=== PATIENT | female | born 1995 | race Two or more races ===

== ENCOUNTER 2025-03-06 21:38 | Emergency (ER) | payer MEDICAID, SELFPAY ==
[2025-03-06 22:35] VITALS: BP 123/78; PULSE 97; RESP 16; TEMP 37.3; O2SAT 98
--- NOTE | 2025-03-06 23:10 | XR_ITS ---
Examination: Complete OB ultrasound greater than 14 weeks Date and time of exam: March 06, 2025, 11:49 p.m. INDICATIONS: Onset vaginal bleeding today Findings: Viable intrauterine single fetus with single amniotic sac presentation breech Cardiac motion 155 bpm Placenta posterior grade 1 Medical cord insertion seen Amniotic fluid adequate Ovaries obscured by bowel gas. Composite estimated gestational age based on BPD, head circumference, abdominal circumference, femur length is 15 weeks 2 days Estimated weight 115 g. Survey of intracranial anatomy, spinal anatomy, abdominal anatomy, four-chamber heart performed with no abnormalities identified. Impression: Viable intrauterine gestation in breech presentation.
[2025-03-06 23:40] LABS: Basophils # (Auto) 0.1 Thou/mm3 (0.0-0.2); Basophils % (Auto) 1 % (0-2.5); Eosinophils # (Auto) 0.3 Thou/mm3 (0.0-0.5); Eosinophils % (Auto) 3 % (0-10); Hematocrit 31.6 % (36.0-46.0); Hemoglobin 11.0 g/dL (12.0-16.0); Immature Granulocytes Auto 0.06 Thou/mm3 (0.00-0.00); Lymphocytes # (Auto) 2.2 Thou/mm3 (1.0-4.8); Lymphocytes % (Auto) 25 % (10-50); Mean Corpuscular HGB Conc 34.8 g/dl (31.0-37.0); Mean Corpuscular Hemoglobin 31.1 pg (25.0-35.0); Mean Corpuscular Volume 89 fL (80-100); Monocytes # (Auto) 0.6 Thou/mm3 (0.0-0.8); Monocytes % (Auto) 6 % (0-12); Neutrophils # (Auto) 5.8 Thou/mm3 (1.8-7.7); Neutrophils % (Auto) 65 % (37-80); Nucleated Red Blood Cell # 0.00 Thou/mm3 (0.00-0.00); Nucleated Red Blood Cell % 0 /100 WBC (0); Platelet Count 378 Thou/mm3 (140-440); RDW Standard Deviation 42.6 fL (36.4-46.3); Red Blood Count 3.54 Miln/mm3 (4.00-5.20); White Blood Count 9.0 Thou/mm3 (3.6-11.0)
[2025-03-07 00:13] LABS: Alanine Aminotransferase 28 U/L (10-49); Albumin, Serum 4.3 gm/dL (3.5-5.0); Albumin/Globulin Ratio 1.3 (1.2-2.2); Alkaline Phosphatase 84 U/L (46-116); Anion Gap 10 (7-16); Aspartate Amino Transferase 37 U/L (0-34); BUN/Creatinine Ratio 18 Ratio (12-20); Bilirubin,Total 0.3 mg/dL (0.3-1.2); Blood Urea Nitrogen 9 mg/dL (9-23); Calcium 9.5 mg/dL (8.3-10.6); Calcium (Corrected) 9.5 mg/dL (8.5-10.1); Carbon Dioxide 24.7 mMol/L (20.0-31.0); Chloride 104 mMol/L (98-107); Creatinine (Component) 0.5 mg/dL (0.6-1.3); Globulin 3.2 gm/dL (2.3-3.5); Glucose 116 mg/dL (74-106); Osmolality,Calculated 277 (275-295); Potassium 3.8 mMol/L (3.4-5.1); Sodium 139 mMol/L (136-145); Total Protein 7.5 gm/dL (5.7-8.2); eGFR > 60 See Note
[2025-03-07 00:18] LABS: Collection Type, Urine Voided
[2025-03-07 00:27] LABS: Bacteria,Urine 1+; Bilirubin,Urine Negative (Negative); Blood,Urine 3+ (Negative); Calcium Oxalate Crystals,Urine 2+; Clarity,Urine Turbid (Clear/Hazy); Color,Urine Lt-Yellow (Lt Yel-Yel); Glucose, Urine Negative (Negative); Ketones,Urine Negative (Negative); Leukocyte Esterase,Urine Negative (Negative); Nitrite,Urine Negative (Negative); PH,Urine 6.5 (5.0-7.0); Protein,Urine Trace (Neg - Trace); RBC,Urine 3 /hpf (0-3); Specific Gravity,Urine 1.026 (1.001-1.035); Squamous Epithelial Cell,Urine 3 /hpf (0-5); Urobilinogen,Urine Negative mg/dL (0.0-1.0); WBC,Urine 2 /hpf (0-5)
--- NOTE | 2025-03-07 01:11 | PRELIM_ITS ---
Obstetric ultrasound with Doppler. March 06, 2025 at 2349 hours Clinical history: Vaginal bleeding. Comparison: None available at the time of this report. Findings: There is a gravid uterus with a live fetus in breech presentation of mean gestational age 15 weeks and 2 days (by biometry). cardiac activity is present at a heart rate of 155 beats per minute. The placenta is posterior in location, maturity grade 1. There is no evidence of placenta previa or retroplacental hemorrhage. Amniotic fluid is qualitatively adequate. Estimated weight is 115 grams+/- 17 grams. No abnormalities by Doppler. The ovaries were not visualized. Impression: Gravid uterus with a single live fetus in breech presentation of mean gestational age 15 weeks 2 days. Report Electronically Signed By: Denys Kim 03/07/2025 1:11:08 AM [EST]
--- NOTE | 2025-03-07 01:46 | EDNOTE_ITS ---
ED OB Contraction Preg RMI/HPI General Chief complaint: Vaginal Bleeding Stated complaint: VAGINAL BLEEDING Time Seen by Provider: 03/06/25 21:51 Arrival date/time: 03/06/25 21:38 This is a case of 29-year-old female with no medical history came in in the emergency room due to vaginal bleeding but no blood clots with pelvic cramping today patient is 16 weeks 1 para 0 no other symptoms noted no vaginal discharge no fever no chills no abdominal pain Limitations: no limitations Related Data Allergies Allergy/AdvReac Type Severity Reaction Status Date / Time No Known Allergies Allergy Verified 03/06/25 21:39 Review of Systems Review of Systems Systems Reviewed: All systems reviewed, normal except as documented Past Medical History Social History SMOKING STATUS: Never smoker ED Exam General Limitations: Present no limitations General appearance: Present alert, in no apparent distress and other (Patient is awake alert oriented not in distress nontoxic looking well-hydrated well- nourished) Head Head exam: Present atraumatic, normocephalic and normal inspection Eye Eye exam: Present normal appearance, PERRL and EOMI ENT ENT exam: Present normal exam, normal oropharynx and mucous membranes moist Neck Neck exam: Present normal inspection, full ROM and trachea midline Chest Chest inspection: Present normal inspection and symmetric chest wall rise Respiratory Respiratory exam: Present normal lung sounds bilaterally; Absent respiratory distress, wheezes, stridor, accessory muscle use or prolonged expiratory phase Cardiovascular Cardiovascular exam: Present regular rate, normal rhythm and normal heart sounds; Absent bradycardia, tachycardia, irregular rhythm, systolic murmur or diastolic murmur Abdominal Exam Abdominal exam: Present soft, normal bowel sounds and other (Gravid uterus); Absent distention, tenderness, guarding, rebound, rigidity, diminished bowel sounds, hyperactive bowel sounds, hypoactive bowel sounds or organomegaly Extremities Exam Extremities exam: Present normal inspection and full ROM Back Exam Back exam: Present normal inspection and full ROM Neurological Exam Neurological exam: Present alert, oriented X3, CN II-XII intact, normal gait and reflexes normal; Absent motor sensory deficit Psychiatric Psychiatric exam: Present normal affect and normal mood Skin Skin exam: Present warm, dry, intact, normal color and other (Excellent skin turgor) Course Quality Measures none Orders Category Date Time Status US OB >= 14 weeks Fetus Stat Exams 03/06/25 23:10 Taken ABO/RH Type Stat Lab 03/06/25 23:25 Completed Beta HCG,Quantitative Stat Lab 03/06/25 23:25 Completed CBC Stat Lab 03/06/25 23:25 Completed CMP [Comprehensive Metabolic Panel] Stat Lab 03/06/25 23:25 Completed Urinalysis Stat Lab 03/06/25 23:10 Completed Vital Signs Vital signs: Vital Signs Temperature 99.1 F 03/06/25 22:35 Pulse Rate 97 03/06/25 22:35 Respiratory Rate 16 03/06/25 22:35 Blood Pressure 123/78 03/06/25 22:35 Pulse Oximetry (%) 98 03/06/25 22:35 Oxygen Delivery Method Room Air 03/06/25 22:35 Oxygen saturation is 98% in room air OB/Uterine Contractions MDM Narrative MDM Narrative:: This is a case of 29-year-old female with no medical history came in in the emergency room due to vaginal bleeding but no blood clots with pelvic cramping today patient is 16 weeks 1 para 0 no other symptoms noted no vaginal discharge no fever no chills no abdominal pain physical examination patient is awake alert oriented not in distress nontoxic looking patient vital signs stable BP stable not tachycardic not tachypneic afebrile and non hypoxic patient abdominal exam is benign nonsurgical no guarding no rebound no rigidity no tenderness normal active bowel sounds gravid uterus based on my physical examination and history patient symptoms suggestive of threatened in early patient blood test showed no leukocytosis no anemia kidney liver function is normal no electrolyte imbalance beta-hCG is 61,351 urinalysis is normal no urinary tract infection ultrasound showed 15 weeks with heart rate of 155 at this point patient will follow-up with PCP in 2 days for evaluation the importance to see an OB oil transport driver was discussed with the patient and for checkup for any worsening symptoms or any emergent concern return precaution in the emergency room was advised Patient was discharged with comfortable condition walking with stable gait. Patient verbalized no further complains explained diagnosis and answered patient question. Patient is comfortable with the proposed management plan including the need to follow up with his/her primary care physician and any specialist if applicable Discussed patient for any urgent condition or worsening sx, He/She needed to go to emergency room immediately or call 911. Patient acknowledge the responsibility to follow up as instructed and to monitor her/his symptoms. For any persistence of the symptoms for more than 3-5 days return precaution ad vised. Discussed the result of the test and was given printed discharge instruction Patient data External records reviewed:: [facility] previous records Clinical information provided by:: patient Social determinants that could affect healthcare access:: none Patient has the following chronic illnesses:: None How is presenting disease/condition affected by chronic disease/condition?: no chronic disease Evaluation data The following diagnostics were reviewed and interpreted by me:: lab results and radiology exam(s) Lab and/or radiology exams considered but not ordered:: Reviewed Interpretation Summary: Reviewed Medications / Prescriptions Medications or Prescriptions considered but not ordered:: Given Medication administrations:: Given Consultations Consultation(s) initiated? (list below): No Diagnosis OB Contractions Differential Diagnosis: other (Threatened early ) Most likely diagnosis given after review of the tests above:: Threatened early. Admission Indicated Admission indicated?: not indicated Explain why admission is indicated or not indicated:: Not indicated Admission Request Was there a request for admission?: No Admission Attestation Admission request attestation: Not indicated Disposition Plan Disposition Plan: Discharge Discharge Attestation Discharge Attestation: The patient and all family members were given an opportunity to ask questions and understood the discharge instructions. Discharge instructions specifically effects, indications for sooner follow up or return to the emergency department, and the expected course of current diagnosis. Patient condition: Stable Discharge Plan Plan Patient Disposition: HOME (Self Care) Patient condition on transfer: Stable Prescriptions/Referrals Referrals: Alfredo Rader MD [Primary Care Provider, Obstetrics] - In 1 week Problem List Clinical Impression: Threatened in early Patient/Caregiver Discharge Instructions Education Materials: ED Possible Miscarriage ... Additional Instructions: Follow-up with your primary care physician in 2 days for reevaluation and to be referred to OB oil transport driver for further evaluation and treatment of threatened early it is very important to see an OB oil transport driver in 2 days for checkup continue multivitamin keep hydrated Pedialyte for hydration for any worsening symptoms or any emergent concern return precaution in the emergency room immediately or call 911 follow-up in 2 days for reevaluation and for repeat beta-hCG and pelvic susu Print Language: French Stand Alone Forms: Filomena Award Info., Patient Portal Info Letter PA/MOLLY Supervising Physician PA/MOLLY Supervising Physician: Dr. Jil Mejia
== END 2025-03-07 01:53 | disposition home or self-care (01) ==
PROVIDERS: Nurse Practitioner Family; Emergency Provider Emergency Medicine; PCP Obstetrics & Gynecology
DX: O20.0 Threatened abortion (principal); Z3A.16 16 weeks gestation of pregnancy
CPT/HCPCS: 36415; 76805; 80053; 81001; 84702; 85025; 86900; 86901; 99283